=== PATIENT | female | born 1995 | race Asian ===

== ENCOUNTER 2019-04-09 17:16 | Emergency (ER) | payer BC ==
[~2019-04-09] VITALS: Ht 154.9 cm; Wt 48.2 kg
[2019-04-09 17:33] VITALS: BP 108/70; Ht 154.9 cm; Wt 48.2 kg
== END 2019-04-09 19:07 | disposition home or self-care (01) ==
LOC: ED 17:16
DX: Z13.9 Encounter for screening, unspecified (principal)